=== PATIENT | male | born 1955 | race Caucasian/White ===

== ENCOUNTER → 2019-02-10 | Day surgery (SDC) | payer BC ==
--- NOTE | 2019-02-06 10:00 | NUR ---
Patient instructed to follow up with physician's office regarding when to stop eliquis before procedure. Patient verbalized understanding.
[2019-02-06 11:43] LABS: BASOPHILS # (AUTO) 0.1 (0.0-0.1); BASOPHILS % 0.8 % (0.0-1.0); EOSINOPHILS # (AUTO) 0.2 (0.0-0.4); EOSINOPHILS % 1.8 % (0.0-6.0); HEMATOCRIT 45.8 % (38.2-49.6); HEMOGLOBIN 14.8 g/dL (14.0-18.0); LYMPHOCYTES # (AUTO) 2.1 (1.0-3.2); LYMPHOCYTES % 24.6 % (18.0-39.1); MEAN CORPUSCULAR HEMOGLOBIN 28.4 pg (28-32); MEAN CORPUSCULAR HGB CONC 32.3 g/dL (31-35); MEAN CORPUSCULAR VOLUME 87.7 fL (81-99); MONOCYTES # (AUTO) 0.9 (0.2-0.8); MONOCYTES % 9.9 % (4.4-11.3); NEUTROPHILS # (AUTO) 5.4 (2.1-6.9); PLATELET COUNT 214 x10e3/uL (140-360); RED BLOOD COUNT 5.22 x10e6/uL (4.3-5.7); RED CELL DISTRIBUTION WIDTH 13.6 % (11.7-14.4)
[2019-02-06 12:00] LABS: INR 1.01; PROTHROMBIN TIME 13.8 seconds (11.9-14.5)
--- NOTE | 2019-02-06 14:13 | NUR ---
Called and notified patient need to redraw CMP due to vial was hemolyzed per Lab. Patient stated he would be available to come after work on Saturday. I instructed patient to check in at motel front desk attendant main lobby to call and notify laboratory helper. Patient verbalized understanding.
[2019-02-09 17:31] LABS: ALANINE AMINOTRANSFERASE 17 IU/L (0-55); ALBUMIN 3.9 g/dL (3.5-5.0); ALBUMIN/GLOBULIN RATIO 1.2 (0.8-2.0); ALKALINE PHOSPHATASE 63 IU/L (40-150); ANION GAP 15.4 mmol/L (8-16); BLOOD UREA NITROGEN 18 mg/dL (7-26); BUN/CREATININE RATIO 23 (6-25); CALCIUM 9.8 mg/dL (8.4-10.2); CARBON DIOXIDE 21 mmol/L (22-29); CHLORIDE 103 mmol/L (98-107); EST GLOMERULAR FILTRATION RATE > 60 ML/MIN (60-); GLUCOSE 136 mg/dL (74-118); POTASSIUM 3.4 mmol/L (3.5-5.1); SODIUM 136 mmol/L (136-145)
[2019-02-10] VITALS (8 sets, daily range): BP systolic 92–124; BP diastolic 57–77
[~2019-02-10] VITALS: Ht 170.2 cm; Wt 114.3 kg
[~2019-02-10] MED LIST: ALPRAZOLAM 0.5 MG TAB ONE; DIOVAN HCT 1601 EAC1 PO; DIPHENHYDRAMINE HCL 25 MG CAP ONE; ELIQUIS PO; FENTANYL CITRATE/PF 100MCG/2 ML INJ ONE; GLIMEPIRIDE2 MG PO; HEPARIN SOD/SOD CHLORIDE 2,000 ML ONE; IOPAMIDOL 370 MG/ML 200 ML INFUS..BTL INJ ONE; JARDIANCE PO; LEVEMIR100 UNIT/1 SC; LIDOCAINE HCL 2% LOCAL 20 ML VIAL ONE; METOPROLOL TART25 MG PO; MIDAZOLAM HCL 2 MG/2 ML VIAL ONE; OMEPRAZOLE40 MG PO; PRAVASTATIN SOD80 MG PO; SODIUM CHLORIDE 0.9% 1000ML 1,000 ML ONE; VERAPAMIL HCL 2.5 MG/ML 2 ML VIAL ONE; VICTOZA 3-0.6 MG/0.1 SC; Z.0.ACTOS45 MG PO; Z.1.DIOVAN HCT 1601 PO
--- OUTSIDE RECORDS SUMMARY | 2019-02-10 07:21 | XMS REPORT ---
Author Author [facility] Address Unknown Phone Unavailable Care Team Providers Care Research Manager Name Role Phone Unavailable Unavailable Payers Payer Name Policy Type Policy Number Effective Date Expiration Date Problems This patient has no known problems. Allergies, Adverse Reactions, Alerts Allergy Name Allergy Type Status Severity Reaction(s) Onset Date Inactive Date Treating Clinician Comments No Known Allergies DA Active U 2013-08-09 00:00:00 Medications This patient has no known medications.
--- NOTE | 2019-02-10 09:40 | NUR ---
[id number] Bedside report received from Maris العلي. Identiferx2 [facility] Diagnostic only no fix. DR Hernandez Rt Radial approach.Alert oriented and appropriate, PERRLA, respirations even and unlabored to room air. Pulses x4 extremities equal and strong. Pedal pulses PT/DPx4 Cap fill brisk < 3 sec. Skin warm and dry integrity appears D/I. IV 20g to let hand at 100cchr via iv controller. Presents healthy w/o s/s of infiltration or complaint. Abdomen soft and supple. pt offered toileting, denies need to urinate or defecate. No personal affects with patient. Family at beside. Pt and family verbalizes understanding of POC. Tr band reduction air scheduled 1030am. Currently w/o complaint of pain or need. Tolerating po intake. No gross issues pain pallor pressure or dysrhythmiad/rn.
--- NOTE | 2019-02-10 10:30 | NUR ---
1030am RADIAL Compression removal: Initial Cuff volume 13 cc 1030am (-2 cc) Removed No hematoma/bleeding noted with normal neurovascular function. 1045 (-2 cc )Removed No hematoma/ bleeding noted with normal neurovascular function. 1100 (-2cc) air removed. No hematoma/bleeding noted with normal neurovascular function. Stasis achieved sterile 2x2,Tegaderm, Coban dressing No hematoma, bleeding noted with normal neurovascular function. Wrist splint in place. Pt instructed on POC. Ds/Rn
--- NOTE | 2019-02-10 11:00 | NUR ---
1100 Pt meets DC criteria. Rt Radial assessed for s/s of complication and presence of hematoma. warm, dry, no discolor, and pulses present. IV removed from left hand. Distal tip appears intact. VS WNL. Pt denies pain, sob, or need at this time. Family at bedside. Review of discharge paperwork and follow up instructions. verbalized understanding. Pt to wheelchair and transported to front of hospital. Transferred to private vehicle under own strength w/o incident with DC paperwork in hand. - ds/rn
--- NOTE | 2019-02-10 11:53 | Operative Report ---
DATE OF PROCEDURE: 02/10/2019 SURGEON: Mayito Hernandez MD INDICATION: Coronary artery disease, abnormal stress test. PROCEDURES PERFORMED: 1. Left heart catheterization, selective coronary angiography. 2. Deployment of right wrist TR band. COMPLICATIONS: None. RECOMMENDATIONS: Medical therapy. DESCRIPTION OF PROCEDURE: Access obtained in the right radial artery. A 5-[place] sheath was placed. Diagnostic coronary angiogram revealed nondominant right coronary artery. Left coronary system had mild diffuse 10 and 20% luminal irregularities. Mid left anterior descending artery, mild myocardial bridging was noted. No critical stenosis or occlusions. No intervention deemed necessary. Right wrist sheath and guide were removed. TR band applied. The patient was discharged home. Mayito Hernandez MD KSB/MODL /[id number]
== END | disposition home or self-care (01) ==
LOC: CATH LAB 07:19
PROVIDERS: ATTEND Internal Medicine Interventional Cardiology
DX: I25.10 Atherosclerotic heart disease of native coronary artery without angina pectoris (principal); R94.39 Abnormal result of other cardiovascular function study; Z01.812 Encounter for preprocedural laboratory examination
CPT/HCPCS: 36415; 80053; 85025; 85610; 93454; C1769; C1887; J2001; J2250; J3010; J7030; Q9967; 93458